=== PATIENT | female | born 1955 | race Caucasian/White ===

== ENCOUNTER → 2016-07-29 | Outpatient (CLI) | payer BC ==
--- NOTE | 2016-07-29 14:47 | MAMMOGRAPHY REPORT ---
BILATERAL DIGITAL SCREENING MAMMOGRAM TOMOSYNTHESIS WITH CAD: 07/29/2016 CLINICAL HISTORY: Routine screening examination. TECHNIQUE: Breast tomosynthesis in addition to standard 2D mammography was performed. Current study was also evaluated with a Computer Aided Detection (CAD) system. COMPARISON: Comparison is made to exams dated: 07/25/2015 mammogram, 07/16/2014 mammogram, 07/13/2013 tonya mogram, 07/12/2012 mammogram, 07/09/2011 mammogram, and 07/03/2010 mammogram - [facility] er. BREAST COMPOSITION: There are scattered areas of fibroglandular density in both breasts. FINDINGS: There are a few benign-appearing round and rim calcifications in the breasts. No suspiciou s mass, architectural distortion or cluster of suspicious microcalcifications is seen. IMPRESSION: ACR BI-RADS CATEGORY 1: NEGATIVE There is no mammographic evidence of malignancy. A 1 year screening mammogram is recommended. The pa tient will receive written notification of the results. Approximately 10% of breast cancers are not detected with mammography. A negative mammographic report should not delay biopsy if a clinically suggestive mass is present. Dayami Ward M.D. ay/:07/29/2016 09:20:18 Driller Hand: Shante SPAULDING(R)(M), [facility] letter sent: Normal 1/2 BI-RADS Code: ACR BI-RADS Category 1: Negative
== END | disposition home or self-care (01) ==
LOC: C.MAMM 08:03
DX: Z12.31 Encounter for screening mammogram for malignant neoplasm of breast (principal)

== ENCOUNTER → 2016-09-08 | Outpatient (CLI) | payer BC ==
--- NOTE | 2016-09-17 10:27 | CODING QUERY NO DIAGNOSIS ---
TREATMENT RENDERED WITHOUT A DIAGNOSIS 56 To promote full compliance with coding requirements relating to patient care, physician participation is requested in all cases of electronic publishing specialist uncertainty. Please assist us with providing a diagnosis/symptom for the test(s) below: A diagnosis/symptom was not documented on your Order. A valid diagnosis/symptom is required to bill all insurances. Please remember that we are unable to code a diagnosis of rule out, probable, possible, questionable, or suspected. DOS 09/08/16 Tests that require a diagnosis: * THIN PREP PAP TEST WITH REFLEX HPV-DNA TYPING DIAGNOSIS: Provider Signature: Date: Thank you Caridad Kaur Health Information Management Once completed, please kindly fax back to [phone] For questions please call [phone]
== END | disposition home or self-care (01) ==
LOC: C.PAPS 14:44
PROVIDERS: ATTEND Nurse Practitioner Family
DX: Z01.419 Encounter for gynecological examination (general) (routine) without abnormal findings (principal)

== ENCOUNTER → 2017-09-15 | Outpatient (CLI) | payer OTHER ==
--- NOTE | 2017-09-15 13:36 | DIAGNOSTIC IMAGING REPORT ---
R EXTREMITY NONVASCULAR LIMITED CLINICAL HISTORY: 62 years-old Female presenting with MASS ON R THIGH. TECHNIQUE: Real-time grayscale ultrasound imaging of the right leg was performed for a focused evaluation at the site of clinical concern. Color Doppler ultrasound imaging was also performed. COMPARISON: None. FINDINGS: At the site of clinical concern in the medial mid right thigh, there is an ill-defined laminar hypoechoic to anechoic fluid collection measuring 2.1 x 0.6 x 2.0 cm. This collection is avascular. There is surrounding hyperechogenic fat. There is no hyperemia in this region. Remaining visualized soft tissues within normal limits. IMPRESSION: 1. Findings suggest small laminar seroma or hematoma at the site of clinical concern. Correlate clinically to exclude infection. Electronically signed by: Kobi Amin M.D. 09/15/2017 1:34 PM Dictated Date/Time: 09/15/2017 1:33 PM
== END | disposition home or self-care (01) ==
LOC: C.ULTR 12:25
DX: R22.41 Localized swelling, mass and lump, right lower limb (principal)

== ENCOUNTER 2020-02-23 12:26 | Observation (INO) ==
[2020-02-23] MEDS ORDERED: ASPIRIN CHEW 324 MG PO STA (12:38)
--- NOTE | 2020-02-23 12:59 | Emergency Department Note ---
Impression & Plan Chest pain, Abnormal ECG, Elevated troponin I level ED Provider Note NAME: MARIO HOBSON AGE: 65 SEX: F : 1955 ARRIVES VIA: Walk-In INFORMANT: Patient, ED PROVIDER(S): Jovani Quarles DO CHIEF COMPLAINT: Chest pain HPI: The patient is a 65-year-old female who presented to the emergency department for an evaluation of chest discomfort. The patient states that she notices substernal and lower sternal chest discomfort. She also notices shortness of breath. She states that the symptoms are sometimes worsened with deep inspiration he is also noticed that she is having exertional dyspnea as well. The patient states that she is an avid walker and has no problem walking around her neighborhood as well as up and down hills in her neighborhood. She states that she has had some problems ever since the beginning of the week. The patient had a very stressful episode with a family member at the beginning of the week and she states that ever since this time she has had difficulty with ambulation and dyspnea on exertion. The patient states that this time her symptoms are moderately improved. She does still have some discomfort but states it is almost completely gone. She does not have a cardiac history. She denies any family history of coronary disease. The patient has not had a stress test or cardiac work-up previously. She did not see her family doctor for the symptoms. She states that she did not take any medication for this discomfort but states it is significantly improved with rest. The patient denies having any lower extremity swelling or calf pain at this time. ROS: See above HPI for pertinent positives & negatives. A total of 10 systems reviewed and were otherwise negative. PAST MEDICAL HISTORY: See Below PAST SURGICAL HISTORY: See Below FAMILY HISTORY: See Below SOCIAL HISTORY: See Below HOME MEDICATIONS: See Below ALLERGIES: See Below VITALS: See Below PHYSICAL EXAMINATION: GENERAL: Patient is awake alert in no acute distress patient is resting com fortably and showing no signs of anxiety EYES: The conjunctivae are clear. The pupils are round and reactive. EARS, NOSE, MOUTH AND THROAT: The nose is without any evidence of any deformity.. NECK: The neck is nontender and supple. RESPIRATORY: Normal respiratory effort is noted there is no evidence of wheezing rhonchi or rales CARDIOVASCULAR: Regular rate and rhythm noted there no murmurs rubs or gallops normal S1 normal S2. GASTROINTESTINAL: The abdomen is soft. Abdomen is nontender. MUSCULOSKELETAL/EXTREMITIES: There is no evidence of gross deformity full range of motion is noted in the hips and shoulders. SKIN: There is no obvious evidence of any rash. There are no petechiae, pallor or cyanosis noted. NEUROLOGIC: Patient is awake alert and oriented x3 strength is symmetric chang lar reflexes are 2+ bilaterally MEDICAL DECISION MAKING: The patient is a 65-year-old female who presented to the emergency department for an evaluation of chest pain. The patient describes anterior chest pain that she describes as a pressure but she also notices significant dyspnea on exertion. The patient does not have a cardiac history. She does not have a strong family history for coronary artery disease. The patient's EKG did show some vague abnormalities including T wave inversions. She is pain-free at this time. She was treated with aspirin in the emergency department. The patient's troponin was found to be borderline elevated. I discussed the patient's laboratory and radiographic studies with her. I also discussed the limitations of the emergency department work-up for chest pain with her. Given her findings I do feel that she is at high risk for acute coronary syndrome. For this reason I discussed her case with the on-call [facility]. They have agreed to evaluate the patient in the emergency department for further management and disposition. Triage Nursing notes reviewed. Prior medical records reviewed Vital Signs: reviewed and remarkable for elevated blood pressure. Differential diagnosis: Cardiac ischemia, aortic dissection, pulmonary embolism, pneumothorax, pneumonia, pericarditis, myocarditis, esophageal rupture, GERD, cholecystitis, pancreatitis, musculoskeletal, as well as other pathologies. ER treatment provided: See below Diagnostics interpreted by me: ECG: EKG was obtained in the emergency department. My interpretation is normal sinus rhythm at 91 bpm. Poor R wave progression with anterior Q waves were noted. Biphasic T waves were noted in the apical and low lateral leads. No previous tracing was available for comparison. Cardiac Monitoring: An order was placed for continuous cardiac monitoring. The monitor shows a rate of 95 bpm with sinus rhythm. Laboratory studies: As stated above and show below. Imaging studies: See below Consultation(s): 1400: I discussed this case with Dr. Ferguson who is on-call for the [facility] group. They will evaluate the patient in the emergency department for further management and disposition. Past Med/Surg History Surgical History H/O oral surgery Social History Smoking Status: Never smoker Hx Alcohol Use: Yes Feels Safe at Home: Yes Allergies Allergies Allergy/AdvReac Type Severity Reaction Status Date / Time Sulfa Drugs Allergy Unknown Unknown Uncoded 02/23/20 13:53 Home Meds Home Medications Medication Instructions Recorded Confirmed omega-3 fatty acids 1,000 mg 1,000 mg PO QDD 01/16/20 02/23/20 capsule sxbntyis-dmv-wluu-FA-lutein 1 tab PO QDD 02/23/20 02/23/20 [Centrum Silver Women] simvastatin 20 mg PO QDD 02/23/20 02/23/20 Results & Data (ED) Vital Signs Vital Signs - 24 hr 02/23/20 12:29 Temperature 36.5 C Temperature Source Skin Pulse Rate 92 H Respiratory Rate 20 Respiratory Effort / Characteristics Non-Labored Spontaneous Respiratory Depth Normal Respiratory Pattern Regular Blood Pressure 143/88 H Blood Pressure Mean 106 Pulse Oximetry 98 Oxygen Delivery Method Room Air Sepsis Recent Fever Within 48 Hours No Sepsis New/Unexplained Change in Mental Status N/A Sepsis Action Taken by Nursing No Action Required Home Medications Current Medication List: was personally reviewed by me Laboratory Data Attestation: I reviewed the patient's lab results. Result diagrams: 02/23/20 12:55 02/23/20 12:55 Lab Results 02/23/20 02/23/20 02/23/20 Range/Units 12:55 12:55 12:55 WBC 5.26 (4.8-10.8) K/uL RBC 4.35 (4.2-5.4) M/uL Hgb 13.9 (12.0-16.0) g/dL Hct 41.0 (37-47) % MCV 94.3 (80-100) fL MCH 32.0 (25-34) pg MCHC 33.9 (32-36) g/dL RDW Std Deviation 43.9 (36.4-46.3) fL RDW Coeff of Susan 12.7 (11.5-14.5) % Plt Count 188 (130-400) K/uL MPV 10.7 H (7.4-10.4) fL Immature Gran % (Auto) 0.0 % Neut % (Auto) 55.8 % Lymph % (Auto) 36.1 % [place] % (Auto) 6.8 % Eos % (Auto) 1.1 % Baso % (Auto) 0.2 % Neut # (Auto) 2.93 (1.4-6.5) K/uL Lymph # (Auto) 1.90 (1.2-3.4) K/uL [place] # (Auto) 0.36 (0.11-0.59) K/uL Eos # (Auto) 0.06 (0-0.5) K/uL Baso # (Auto) 0.01 (0-0.2) K/uL Immature Gran # (Auto) 0.00 (0.00-0.02) K/uL PT 10.6 (9.0-12.0) Seconds INR 1.0 (0.9-1.1) APTT 28.4 (21.0-31.0) Seconds PTT Ratio 1.0 Sodium 140 (136-145) mmol/L Potassium 3.9 (3.5-5.1) mmol/L Chloride 107 (98-107) mmol/L Carbon Dioxide 28 (21-32) mmol/L Anion Gap 5.0 (3-11) BUN 16 (7-18) mg/dl Creatinine 0.80 (0.6-1.2) mg/dl Est Cr Clr Drug Dosing 69.1 ml/min Est GFR ( Amer) 90.3 Est GFR (Non-Af Amer) 77.9 BUN/Creatinine Ratio 20.6 H (10-20) Glucose 109 H (70-99) mg/dl Calcium 9.2 (8.5-10.1) mg/dl Total Bilirubin 0.4 (0.2-1) mg/dl AST 19 (15-37) U/L ALT 28 (12-78) U/L Alkaline Phosphatase 75 (45-117) U/L Troponin I 0.270 H* (0-0.045) ng/ml Total Protein 7.0 (6.4-8.2) gm/dl Albumin 3.4 (3.4-5.0) gm/dl Globulin 3.6 (2.5-4.0) gm/dl Albumin/Globulin Ratio 0.9 (0.9-2) Lipase 125 (73-393) U/L COVID-19 Eval Order SARS-CoV-2, RNA, NAAT (NEGATIVE) 02/23/20 02/23/20 Range/Units 13:00 13:00 WBC (4.8-10.8) K/uL RBC (4.2-5.4) M/uL Hgb (12.0-16.0) g/dL Hct (37-47) % MCV (80-100) fL MCH (25-34) pg MCHC (32-36) g/dL RDW Std Deviation (36.4-46.3) fL RDW Coeff of Susan (11.5-14.5) % Plt Count (130-400) K/uL MPV (7.4-10.4) fL Immature Gran % (Auto) % Neut % (Auto) % Lymph % (Auto) % [place] % (Auto) % Eos % (Auto) % Baso % (Auto) % Neut # (Auto) (1.4-6.5) K/uL Lymph # (Auto) (1.2-3.4) K/uL [place] # (Auto) (0.11-0.59) K/uL Eos # (Auto) (0-0.5) K/uL Baso # (Auto) (0-0.2) K/uL Immature Gran # (Auto) (0.00-0.02) K/uL PT (9.0-12.0) Seconds INR (0.9-1.1) APTT (21.0-31.0) Seconds PTT Ratio Sodium (136-145) mmol/L Potassium (3.5-5.1) mmol/L Chloride (98-107) mmol/L Carbon Dioxide (21-32) mmol/L Anion Gap (3-11) BUN (7-18) mg/dl Creatinine (0.6-1.2) mg/dl Est Cr Clr Drug Dosing ml/min Est GFR ( Amer) Est GFR (Non-Af Amer) BUN/Creatinine Ratio (10-20) Glucose (70-99) mg/dl Calcium (8.5-10.1) mg/dl Total Bilirubin (0.2-1) mg/dl AST (15-37) U/L ALT (12-78) U/L Alkaline Phosphatase (45-117) U/L Troponin I (0-0.045) ng/ml Total Protein (6.4-8.2) gm/dl Albumin (3.4-5.0) gm/dl Globulin (2.5-4.0) gm/dl Albumin/Globulin Ratio (0.9-2) Lipase (73-393) U/L COVID-19 Eval Order Covid19 [facility]Now [facility] SARS-CoV-2, RNA, NAAT NEGATIVE (NEGATIVE) Administered Medications Discontinued Medications Aspirin (Aspirin Chew 324 Mg) 324 mg PO NOW STA Stop: 02/23/20 12:39 Last Admin: 02/23/20 12:58 Dose: 324 mg Documented by: [id number] Imaging Data Radiologist's Impression: Patient: MARIO HOBSON Admit Date: 02/23/20 MR#: [id number] Address1: [address] Acct ID:[id number] Address2: Date: 1955 [facility] Zip: [place] [address] Age: 65 Location: ED Sex: F Room/Bed: Att Phy: Diagnosis: CHEST PAIN,SOB NOW RESOLVED Rose Phy: Keo Shaw Jr, DO Service Date: 02/23/20 [facility] Phy: Interpreting Phy: Lai Anaya MD Admit Phy: Ordering Phy: Jovani Quarles DO cc: ~ XR chest 1V portable CLINICAL HISTORY: Chest Pain COMPARISON STUDY: No previous studies for comparison. FINDINGS: Lung volumes are normal. Lungs are clear. There is no pneumothorax or pleural effusion. Cardiac size is normal. Mediastinal contours are normal. There is no evidence for pulmonary edema. IMPRESSION: No acute cardiopulmonary findings. ACT 112: Negative or not required by law. Electronically signed by: Lai Anaya M.D. 02/23/2020 1:32 PM Dictated: 02/23/20 1331 Transcribed: 02/23/20 1331 Blood Pressure Blood Pressure Findings: Elevated blood pressure Blood Pressure Disposition: further management by hospitalist Discharge Plan Visit Data Chief Complaint: Cardiac Assessment Stated Complaint: CHEST PAIN,SOB NOW RESOLVED ED Provider: Jovani Quarles Discharge Problem: Chest pain, Abnormal ECG, Elevated troponin I level Patient Disposition: Being Evaluated by Hospitalist Condition: Good Forms Stand Alone Forms: My [facility] [employer] Prescriptions Prescriptions: No Action omega-3 fatty acids [Fish Oil Concentrate] 1,000 mg capsule 1,000 mg PO QDD RF: 0 simvastatin 20 mg tablet 20 mg PO QDD RF: 0 Centrum Silver Women 8 mg iron-400 mcg-300 mcg Tablet 1 tab PO QDD RF: 0 Referrals Referrals: Keo Shaw Jr, DO [Primary Care Provider] - Discharge Problem: Chest pain Qualifiers: Chest pain type: unspecified Qualified Code(s): R07.9 - Chest pain, unspecified
[2020-02-23 13:12] LABS: Basophils # (auto) 0.01 K/uL (0-0.2); Basophils % (auto) 0.2 %; Eosinophils # (auto) 0.06 K/uL (0-0.5); Eosinophils % (auto) 1.1 %; Hemoglobin 13.9 g/dL (12.0-16.0); Lymphocytes % (auto) 36.1 %; Mean Corpuscular Hgb Conc 33.9 g/dL (32-36); Mean Corpuscular Volume 94.3 fL (80-100); Mean Platelet Volume 10.7 fL (7.4-10.4); Monocytes # (auto) 0.36 K/uL (0.11-0.59); Monocytes % (auto) 6.8 %; Neutrophils # (auto) 2.93 K/uL (1.4-6.5); Neutrophils % (auto) 55.8 %; Platelet Count 188 K/uL (130-400); RDW Coefficient of Variation 12.7 % (11.5-14.5); RDW Standard Deviation 43.9 fL (36.4-46.3); Red Blood Count 4.35 M/uL (4.2-5.4); White Blood Count 5.26 K/uL (4.8-10.8)
[2020-02-23 13:23] LABS: Partial Thromboplastin Time 28.4 Seconds (21.0-31.0); Prothrombin Time 10.6 Seconds (9.0-12.0)
[2020-02-23 13:29] LABS: Albumin Level 3.4 gm/dl (3.4-5.0); BUN Creatinine Ratio 20.6 (10-20); Calcium 9.2 mg/dl (8.5-10.1); Creatinine Clr Calc Pharmacy 69.1 ml/min; Est GFR (African American) 90.3; Est GFR (Non-African American) 77.9; Potassium 3.9 mmol/L (3.5-5.1)
--- NOTE | 2020-02-23 13:33 | XRay Report ---
XR chest 1V portable CLINICAL HISTORY: Chest Pain COMPARISON STUDY: No previous studies for comparison. FINDINGS: Lung volumes are normal. Lungs are clear. There is no pneumothorax or pleural effusion. Car diac size is normal. Mediastinal contours are normal. There is no evidence for pulmonary edema. IMPRESSION: No acute cardiopulmonary findings. ACT 112: Negative or not required by law. Electronically signed by: Lai Anaya M.D. 02/23/2020 1:32 PM
[2020-02-23 13:37] LABS: Albumin Globulin Ratio 0.9 (0.9-2); Bilirubin,Total 0.4 mg/dl (0.2-1); Globulin 3.6 gm/dl (2.5-4.0); Troponin I 0.27 ng/ml (0-0.045)
[2020-02-23 14:10] LABS: D Dimer 250 ug/L FEU (0-500)
[2020-02-23] MEDS ORDERED: METOPROLOL SUCC 50MG EXT REL TAB PO STA (14:35)
--- NOTE | 2020-02-23 17:03 | History & Physical Report ---
Date of Service February 23, 2020 Assessment & Plan (1) Takotsubo cardiomyopathy: Mrs. Kumar is a generally active and healthy 65-year-old female with a history of Hypercholesterolemia who presents today with what is most likely Takotsubo Syndrome / Takotsubo Cardiomyopathy as evidenced by her symptoms, history, elevated troponin I level, and Echo findings. Patient went through an extremely stressful situation with her younger sister on 02/19/2020 and presents today complaining of decreased exertional tolerance, and exertional dyspnea ever since having an episode of chest discomfort at that time. Patient's mother had a stroke and is now in a assisted which has been quite expensive -- and her younger sister has been living in the mother's home. Patient plans on selling her mother's house to help pay for assisted cost, but her younger sister is opposed to this. Nonetheless, arrangements were made for the patient and her youngest sister to go there and start emptying out some of the furnishings. Needless to say, her younger sister -- who is a hoarder -- barricaded herself inside the house and called the police. When the police were interviewing the patient, she developed a vague discomfort in her anterior chest which lasted for about 30 minutes in total. She did not have any associated nausea, vomiting, diaphoresis, or dyspnea. The discomfort did not radiate anywhere else either. However, since that time, when the patient goes on her daily 4 mile walk -- her exertional tolerance has dropped off significantly, and she experiences exertional dyspnea which limits her. Patient states that she has walked every day for a long time, walking 4 miles a day and this includes hills. She has never experienced anything like this before. -- Admit for further evaluation and treatment. -- Trend troponin I levels. -- Daily EKG and EKG prn for chest pain. -- Heparin drip. -- Aspirin 81 mg daily. -- Cardiology consult. -- Begin Toprol XL 50 mg daily. -- If BP allows -- begin ACEI or ARB. -- Follow up Echocardiogram in the next several weeks to re-evaluate LV systolic function. (2) Chest pain: -- As outlined above. (3) Abnormal ECG: -- As outlined above. (4) Elevated troponin I level: -- As outlined above. (5) Hypercholesterolemia: -- Continue Simvastatin 20 mg daily. (6) DVT prophylaxis: Heparin drip Disposition-bring in on observation to PCU History of Present Illness Chief Complaint: -- Chest Pain. -- Exertional Dyspnea. -- Decreased Exertional Tolerance x 5 days. Primary Care Provider: Keo Shaw Jr, DO Mrs. Kumar is a generally active and healthy 65-year-old female with a history of Hypercholesterolemia who presents today complaining of decreased exertional tolerance, and exertional dyspnea ever since having an episode of chest discomfort on Wednesday02/19/2020. Patient with through an extremely stressful situation with her younger sister on 02/19/2020. Patient's mother had a stroke and is now in a assisted which has been quite expensive -- and her younger sister has been living in the mother's home. Patient plans on selling her mother's house to help pay for assisted cost, but her younger sister is opposed to this. Nonetheless, arrangements were made for the patient and her youngest to go there and start emptying out some of the furnishings. needless to say, her younger sister who is a hoarder -- barricaded herself inside the house and called the police. When the police were interviewing the patient, she developed a vague discomfort in her anterior chest which lasted for about 30 minutes in total. She did not have any associated nausea, vomiting, diaphoresis, or dyspnea. The discomfort did not radiate anywhere else either. However, since that time, when the patient goes on her daily 4 mile walk -- her exertional tolerance has dropped off significantly, and she experiences exertional dyspnea which limits her. Patient states that she has walked every day for a long time, walking 4 miles a day and this includes hills. She has never experienced anything like this before. She is not experiencing any chest discomfort at this point. Patient denies any prior cardiac history or prior cardiac events. She exercises routinely. She is compliant with her medicines and has not had any adverse side effects. Evaluation in the ER shows an elevated troponin I level of 0.270 ng/mL and her EKG shows a NSR with an age-indeterminate septal infarct pattern. No prior tracings for comparison. Allergies Allergy/AdvReac Type Severity Reaction Status Date / Time Sulfa Drugs Allergy Unknown Unknown Uncoded 02/23/20 13:53 Home Medications Medication Instructions Recorded Confirmed Type omega-3 fatty acids 1,000 mg 1,000 mg PO QDD 01/16/20 02/23/20 History capsule [id number]-lutein 1 tab PO QDD 02/23/20 02/23/20 History [Centrum Silver Women] simvastatin 20 mg PO QDD 02/23/20 02/23/20 History Past Med/Surg History Medical History (Updated 02/23/20 @ 22:26 by Brisa Ferguson MD) Hypercholesterolemia Surgical History (Updated 02/23/20 @ 22:29 by Brisa Ferguson MD) H/O oral surgery History of appendectomy Family History (Updated 02/23/20 @ 22:24 by Brisa Ferguson MD) Mother Stroke Social History Smoking Status: Never smoker Hx Alcohol Use: Yes Alcohol type: wine Hx Substance Use: No Preferred Language: Kiswahili Communication Ability: Effective Gaming Director Required: No Beliefs That Will Affect Care: None Current Living Situation: Spouse Other Information That Helps Us Care for You: No Feels Safe at Home: Yes Safety Concerns: Feels Safe At This Time Assistive Devices: Glasses Review of Systems Review of Systems: All systems reviewed & are unremarkable except as noted in Subjective Physical Exam Physical Exam: GENERAL: Patient in no acute distress. HEENT: Head is atraumatic, normocephalic. EOM's intact. Facies symmetric. No perioral cyanosis. NECK: No JVD. JVP is at the level of the clavicle sitting upright. Carotid upstrokes are + 2 bilaterally. No bruits are noted. CHEST/LUNGS: Clear to auscultation throughout all lung floyd. No wheezes, rales, or crackles. CVS: S1 and S2 are regular without murmurs, gallops, or rubs. PMI is nondisplaced. No lifts, heaves, or thrills. No abdominal aortic or renal bruits. ABDOMINAL EXAM: Bowel sounds are present. No masses, organomegaly, or tenderness. EXTREMITIES: No clubbing or cyanosis. No edema. Intact posterior tibial and radial pulses bilaterally. NEUROLOGIC EXAM: Patient is awake, alert, and oriented. Pleasant and cooperative. Answers questions appropriately. Speech is clear. Normal movement in all 4 extremities. EKG 02/23/2020: -- NSR with an age-indeterminate septal infarct pattern. -- No prior tracings for comparison. ECHOCARDIOGRAM 02/23/2020: -- Decreased LV systolic function with global LV hypokinesis but basal segments are spared. -- Fish Farm Manager's interpretation is pending. Results & Data Results & Data ([facility]) Vital Signs (Past 12 Hours) Vital Signs Temp Pulse Pulse Resp BP BP Pulse Ox 02/23/20 16:00 81 16 02/23/20 15:31 75 16 02/23/20 15:30 78 15 108/71 02/23/20 15:22 85 19 02/23/20 15:21 86 18 114/83 02/23/20 15:00 82 12 109/53 L 02/23/20 14:41 92 H 16 02/23/20 14:30 75 17 02/23/20 14:01 79 18 02/23/20 14:00 80 81 15 103/68 106/67 02/23/20 13:54 81 15 106/67 02/23/20 13:30 78 18 02/23/20 13:00 86 18 02/23/20 12:38 93 H 24 02/23/20 12:29 36.5 C 92 H 20 143/88 H 98 Laboratory Results Laboratory Results - last 24 hr 02/23/20 02/23/20 02/23/20 12:38 12:55 12:55 WBC 5.26 RBC 4.35 Hgb 13.9 Hct 41.0 MCV 94.3 MCH 32.0 MCHC 33.9 RDW Std Deviation 43.9 RDW Coeff of Susan 12.7 Plt Count 188 MPV 10.7 H Immature Gran % (Auto) 0.0 Neut % (Auto) 55.8 Lymph % (Auto) 36.1 [place] % (Auto) 6.8 Eos % (Auto) 1.1 Baso % (Auto) 0.2 Neut # (Auto) 2.93 Lymph # (Auto) 1.90 [place] # (Auto) 0.36 Eos # (Auto) 0.06 Baso # (Auto) 0.01 Immature Gran # (Auto) 0.00 PT 10.6 INR 1.0 APTT 28.4 PTT Ratio 1.0 D-Dimer 250 Sodium Potassium Chloride Carbon Dioxide Anion Gap BUN Creatinine Est Cr Clr Drug Dosing Est GFR ( Amer) Est GFR (Non-Af Amer) BUN/Creatinine Ratio Glucose Calcium Total Bilirubin AST ALT Alkaline Phosphatase Troponin I Total Protein Albumin Globulin Albumin/Globulin Ratio Lipase COVID-19 Eval Order SARS-CoV-2, RNA, NAAT 02/23/20 02/23/20 02/23/20 12:55 13:00 13:00 WBC RBC Hgb Hct MCV MCH MCHC RDW Std Deviation RDW Coeff of Susan Plt Count MPV Immature Gran % (Auto) Neut % (Auto) Lymph % (Auto) [place] % (Auto) Eos % (Auto) Baso % (Auto) Neut # (Auto) Lymph # (Auto) [place] # (Auto) Eos # (Auto) Baso # (Auto) Immature Gran # (Auto) PT INR APTT PTT Ratio D-Dimer Sodium 140 Potassium 3.9 Chloride 107 Carbon Dioxide 28 Anion Gap 5.0 BUN 16 Creatinine 0.80 Est Cr Clr Drug Dosing 69.1 Est GFR ( Amer) 90.3 Est GFR (Non-Af Amer) 77.9 BUN/Creatinine Ratio 20.6 H Glucose 109 H Calcium 9.2 Total Bilirubin 0.4 AST 19 ALT 28 Alkaline Phosphatase 75 Troponin I 0.270 H* Total Protein 7.0 Albumin 3.4 Globulin 3.6 Albumin/Globulin Ratio 0.9 Lipase 125 [facility], RNA, NAAT NEGATIVE Diagnostic Findings CXR 02/23/2020: -- No acute processes. Medications Administered Discontinued Medications Aspirin (Aspirin Chew 324 Mg) 324 mg PO NOW STA Stop: 02/23/20 12:39 Last Admin: 02/23/20 12:58 Dose: 324 mg Documented by: [id number] Metoprolol Succinate (Metoprolol Succ 50mg Ext Rel Tab) 50 mg PO NOW STA Stop: 02/23/20 14:36 Last Admin: 02/23/20 15:19 Dose: 50 mg Documented by: [id number] Code Status & VTE Plan VTE Prophylaxis Plan VTE Prophylaxis will be ordered: Yes Supervising Physician Co-Signing Physician Notes PA Supervision Note: I personally saw and examined the patient. I verified all duarte points and agree with BEENA Alcantar with the following exceptions and/or additions: This patient is a 65-year-old female who presents today with 4 to 5 days of mild chest discomfort with exertion as well as dyspnea on exertion that came on after a very stressful family/personal event this past Wednesday. While she is sitting at rest, she has no chest pain or shortness of breath. She denies any abdominal pains or nausea. She denies any lower extremity edema. She has never had any cardiac or pulmonary issues in the past. In the ER, her vitals were normal. A troponin however was elevated at 0.2. Her ECG showed a normal sinus rhythm with rate of 91 and an age undetermined septal infarct. D-dimer was negative. Covid-19 test was negative. History and ROS reviewed as above Vitals reviewed Gen: AAOx3, NAD HEENT: Anicteric sclerae, EOMI CV: RRR no mgr nl S1S2, no JVD Pulm: CTAB no wcr Abd: +BS soft NT ND no masses or hernias Ext: No edema, 2+ DP pulses Skin: No rashes, warm/dry Neuro: Full strength throughout Laboratory values reviewed ECG reviewed Chest x-ray reviewed 65-year-old female here with 4 to 5 days of chest discomfort and dyspnea on exertion following a very stressful event, found to have positive troponin. Echocardiogram performed in the ER and found to have findings consistent with Takotsubo cardiomyopathy but with preserved EF -Admit with plan outlined as above for medical management Appreciate any further recommendations by cardiology. PG Care Time/CCT Total # of Minutes Spent Total Time Spent with Patient: Total time spent is greater than 50% in coordination of care (as documented) at patient's floor/unit and/or counseling patient:35 Coding Level of Care Code 04604 OBS Care - Level 3 Diagnoses Takotsubo cardiomyopathy I51.81 Chest pain R07.9 Chest pain type: unspecified Abnormal ECG R94.31 Elevated troponin I level R77.8 Hypercholesterolemia E78.00 DVT prophylaxis Z29.9 Time Spent (min) 60 (1) Chest pain Chest pain type: unspecified Qualified Code(s): R07.9 - Chest pain, unspecified
--- NOTE | 2020-02-23 17:20 | XCELERA ---
[id number]
[2020-02-23] MEDS ORDERED: ALUMINUM/MAGNESIUM/SIMETH (MAALOX MAX) 30 ML UDC PO PRN (17:23)
[2020-02-23] MEDS ORDERED: NITROGLYCERIN SL 0.4 MG/TAB TAB SL PRN (17:23)
[2020-02-23] MEDS ORDERED: HEPARIN SODIUM/DEXTROSE 25,000 UNITS/500 ML BAG IV SCH (17:23)
[2020-02-23] MEDS ORDERED: MAGNESIUM HYDROXIDE SUSP 30 ML UDC PO PRN (17:23)
[2020-02-23] MEDS ORDERED: ONDANSETRON INJ 2 MG/ML 2 ML VIAL IV PRN (17:23)
[2020-02-23] MEDS ORDERED: ACETAMINOPHEN 325 MG TAB PO PRN (17:23)
[2020-02-23] MEDS ORDERED: ZOLPIDEM TARTRATE 5 MG TAB PO PRN (17:23)
[2020-02-23] MEDS ORDERED: Heparin IV Standard *NO* Bolus IV SCH (18:15)
[2020-02-23] MEDS: SIMVASTATIN 20 MG TAB PO SCH (18:37)
--- NOTE | 2020-02-23 23:19 | Electrocardiogram Report ---
Test Reason : Blood Pressure : / mmHG Vent. Rate : 091 BPM Atrial Rate : 091 BPM P-R Int : 160 ms QRS Dur : 084 ms QT Int : 342 ms P-R-T Axes : 035 -23 056 degrees QTc Int : 420 ms Normal sinus rhythm Septal infarct , age undetermined Abnormal ECG No previous ECGs available Confirmed by Joe Camarena ([id number]) on 02/23/2020 11:18:57 PM Referred By: Confirmed By:Joe Camarena
[2020-02-24 01:25] LABS: Partial Thromboplastin Ratio 2.2
[2020-02-24 01:29] LABS: Partial Thromboplastin Time 62.1 Seconds (21.0-31.0)
[2020-02-24 08:31] LABS: Basophils # (auto) 0.01 K/uL (0-0.2); Basophils % (auto) 0.2 %; Eosinophils # (auto) 0.12 K/uL (0-0.5); Eosinophils % (auto) 2.1 %; Hematocrit (blood only) 40.5 % (37-47); Hemoglobin 13.9 g/dL (12.0-16.0); Immature Granulocytes # (auto) 0.01 K/uL (0.00-0.02); Immature Granulocytes % (auto) 0.2 %; Lymphocytes # (auto) 2.23 K/uL (1.2-3.4); Lymphocytes % (auto) 39.7 %; Mean Corpuscular Hgb Conc 34.3 g/dL (32-36); Mean Corpuscular Volume 93.1 fL (80-100); Mean Platelet Volume 10.7 fL (7.4-10.4); Monocytes # (auto) 0.45 K/uL (0.11-0.59); Neutrophils % (auto) 49.8 %; Platelet Count 198 K/uL (130-400); RDW Coefficient of Variation 12.9 % (11.5-14.5); RDW Standard Deviation 44.2 fL (36.4-46.3); Red Blood Count 4.35 M/uL (4.2-5.4); White Blood Count 5.62 K/uL (4.8-10.8)
[2020-02-24] MEDS ORDERED: ASPIRIN 81 MG ECTAB PO SCH (09:00)
[2020-02-24] MEDS ORDERED: METOPROLOL SUCC 50MG EXT REL TAB PO SCH (09:00)
[2020-02-24 09:06] LABS: Partial Thromboplastin Ratio 4.1
[2020-02-24 09:09] LABS: BUN Creatinine Ratio 18.4 (10-20); Calcium 9.2 mg/dl (8.5-10.1); Est GFR (African American) 83.9; Est GFR (Non-African American) 72.4; Potassium 3.9 mmol/L (3.5-5.1)
[2020-02-24 09:30] LABS: Partial Thromboplastin Time 113.3 Seconds (21.0-31.0)
[2020-02-24] MEDS ORDERED: HEPARIN (PORCINE) 1000 UNIT/ML 10 ML (CATH LAB USE ONLY) ONE (11:29)
[2020-02-24] MEDS ORDERED: MIDAZOLAM HCL 1 MG/ML 2ML VIAL ONE (11:29)
[2020-02-24] MEDS ORDERED: fentaNYL citrate 100 MCG/2 ML VIAL ONE (11:29)
[2020-02-24] MEDS ORDERED: niCARdipine HCL INJ 2.5 MG/ML 10 ML AMP ONE (11:29)
[2020-02-24] MEDS ORDERED: NITROGLYCERIN/D5W 100MCG/ML 20ML SYR ONE (11:30)
--- NOTE | 2020-02-24 11:57 | Cardiology Consultation ---
Date of Consultation February 24, 2020 Assessment & Plan (1) Angina pectoris: (2) Takotsubo cardiomyopathy: (3) Elevated troponin I level: (4) Dyspnea on exertion: (5) Hypercholesterolemia: ASSESSMENT/PLAN: 1. Angina: Symptoms concerning for angina. Given her very stressful situation, Takotsubo is a very likely explanation. Given history of dyslipidemia and the fact that Takotsubo is a diagnosis made after ischemic heart disease is ruled out, cardiac catheterization is recommended. Risks and benefits of the procedure were discussed with her in detail. She was made aware that CT surgery is not available at this facility. She is agreeable to undergo the procedure and has been NPO. Continue heparin drip. Continue aspirin. Continue beta- kenneth as tolerated. 2. Takotsubo cardiomyopathy: This appears to be a likely etiology for her symptoms. Cardiac catheterization as above to exclude ischemic heart disease as the cause. We discussed this diagnosis as she was already aware of this possibility. Recommend metoprolol succinate. She did not received today's dose due to hypotension. Will reduce to 25 mg daily. If blood pressure allows, would also recommend low-dose lisinopril. If no significant LAD disease is noted, would expect wall motion abnormalities to improve over the next few weeks. She appears euvolemic. 3. Elevated troponin: Plan as above. 4. Dyspnea with exertion: She appears euvolemic. Most likely etiologies discussed as above. 5. Dyslipidemia: Continue statin therapy. If she is found to have CAD, would recommend high-intensity statin therapy in place of simvastatin. 6. Disposition: Cardiology will continue to follow. As per patient request, her was contacted via telephone to update him with plan as noted. Highly complex medical issues. Thank you for allowing me to participate in the care of your patient. Please c all for any other questions or concerns. Sincerely, Jasbir Chino M.D. History of Present Illness Reason for Consultation: "Takotsubo CM" Requesting Physician: Katharine Attending Physician: Mateo Horvath DO History of Present Illness Mrs. Kumar is a very pleasant 61 for old female with a history significant for dyslipidemia. She was admitted on 02/23/2020 with elevated troponin, dyspnea with exertion, and intermittent anginal symptoms. On 02/19/2020, she had a very stressful situation with her youngest sister, Sienna. Sienna lives with their mother who was recently placed in a half-way due to stroke. The youngest sister who lives in [place], came to the house to take the belongings that were left to her and Sienna reportedly called the police and barricaded herself in the home. While the police were there, Mrs. Kumar, developed a substernal chest discomfort described as an ache which was accompanied by shortness of breath. She sat down and her symptoms improved. A little later, she help pack some of the belongings into boxes with her youngest sister and she did this without symptoms. She typically walks 4 miles a day including hills and does so without exertional symptoms, but later that day she went for a walk with her youngest sister and had dyspnea with exertion while climbing a hill. She believed it to be anxiety related to the earlier incident. The following day, she went for another walk, once again experiencing dyspnea while climbing a hill. The following day she help move furniture and had no symptoms. The next day, she had occasional mild substernal chest ache without specific trigger that would intermittently occur throughout the day. Yesterday, the day of admission, she called her PCP who directed her to the emergency department. While here, she was noted to have an elevated troponin of 0.27 which trended downward to 0.239. She underwent an echo with apical wall motion abnormalities and there was concern for takotsubo cardiomyopathy. She was placed on a heparin drip by the admitting service and has not had any further symptoms. She denies orthopnea, syncope, near-syncope, palpitations, edema, or bleeding such as melena, hematochezia, or hematuria. Review of systems: As above. Review of systems otherwise negative/unremarkable. Family history: Mother and maternal grandmother with stroke. No known premature CAD. Social history: Denies tobacco or drug abuse. Occasional alcohol. Lives at home with her . They have a son and a daughter. 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 She is unaccompanied. Allergies Allergy/AdvReac Type Severity Reaction Status Date / Time Sulfa Drugs Allergy Unknown Unknown Uncoded 02/23/20 13:53 Home Medications Medication Instructions Recorded Confirmed Type omega-3 fatty acids 1,000 mg 1,000 mg PO QDD 01/16/20 02/23/20 History capsule [id number]-[id number]-[id number]-lutein 1 tab PO QDD 02/23/20 02/23/20 History [Centrum Silver Women] simvastatin 20 mg PO QDD 02/23/20 02/23/20 History Patient History Medical History (Updated 02/24/20 @ 11:51 by Héctor Chino MD) Hypercholesterolemia Surgical History (Updated 02/23/20 @ 22:29 by Brisa Ferguson MD) H/O oral surgery History of appendectomy Family History (Updated 02/23/20 @ 22:24 by Brisa Ferguson MD) Mother Stroke Social History Smoking Status: Never smoker Hx Alcohol Use: Yes Alcohol type: wine Hx Substance Use: No Preferred Language: Swiss Communication Ability: Effective Digital Photographic Printer Required: No Beliefs That Will Affect Care: None Current Living Situation: Spouse Other Information That Helps Us Care for You: No Feels Safe at Home: Yes Safety Concerns: Feels Safe At This Time Assistive Devices: Glasses Physical Exam Physical Exam: Gen.: No acute distress. Alert and oriented. HEENT: Anicteric sclera. Neck: No JVD. No bruits. Normal carotid upstrokes bilaterally. Cardiac: PMI was nondisplaced. No ventricular heave. Regular rate and rhythm. Normal S1-S2. No murmurs, rubs, or gallops. Pulmonary: Clear to auscultation bilaterally without wheezes, rales, or rhonchi. Abdomen: Soft, nontender, nondistended, with normoactive bowel sounds. No bruits noted. Extremities: 2+ radial pulses bilaterally. 2+ posterior tibialis pulses bilaterally. No edema or cyanosis. No palpable cords. Psychiatric: Affect appears appropriate. Chest: Nontender to palpation. Results & Data ([facility]) Vital Signs (Past 12 Hours) Vital Signs Temp Pulse Pulse Resp BP Pulse Ox 02/24/20 08:56 65 02/24/20 08:23 36.7 C 67 16 91/58 L 98 02/24/20 03:44 36.7 C 63 17 91/60 L 97 02/24/20 00:43 67 02/23/20 23:46 37.1 C 81 17 98/60 L 97 Laboratory Results Laboratory Results - last 24 hr 02/23/20 02/23/20 02/23/20 12:38 12:55 12:55 WBC 5.26 RBC 4.35 Hgb 13.9 Hct 41.0 MCV 94.3 MCH 32.0 MCHC 33.9 RDW Std Deviation 43.9 RDW Coeff of Susan 12.7 Plt Count 188 MPV 10.7 H Immature Gran % (Auto) 0.0 Neut % (Auto) 55.8 Lymph % (Auto) 36.1 [place] % (Auto) 6.8 Eos % (Auto) 1.1 Baso % (Auto) 0.2 Neut # (Auto) 2.93 Lymph # (Auto) 1.90 [place] # (Auto) 0.36 Eos # (Auto) 0.06 Baso # (Auto) 0.01 Immature Gran # (Auto) 0.00 PT 10.6 INR 1.0 APTT 28.4 PTT Ratio 1.0 D-Dimer 250 Sodium Potassium Chloride Carbon Dioxide Anion Gap BUN Creatinine Est Cr Clr Drug Dosing Est GFR ( Amer) Est GFR (Non-Af Amer) BUN/Creatinine Ratio Glucose Calcium Total Bilirubin AST ALT Alkaline Phosphatase Troponin I Total Protein Albumin Globulin Albumin/Globulin Ratio Lipase COVID-19 Eval Order Hepatitis C Ab Screen SARS-CoV-2, RNA, NAAT 02/23/20 02/23/20 02/23/20 12:55 13:00 13:00 WBC RBC Hgb Hct MCV MCH MCHC RDW Std Deviation RDW Coeff of Susan Plt Count MPV Immature Gran % (Auto) Neut % (Auto) Lymph % (Auto) [place] % (Auto) Eos % (Auto) Baso % (Auto) Neut # (Auto) Lymph # (Auto) [place] # (Auto) Eos # (Auto) Baso # (Auto) Immature Gran # (Auto) PT INR APTT PTT Ratio D-Dimer Sodium 140 Potassium 3.9 Chloride 107 Carbon Dioxide 28 Anion Gap 5.0 BUN 16 Creatinine 0.80 Est Cr Clr Drug Dosing 69.1 Est GFR ( Amer) 90.3 Est GFR (Non-Af Amer) 77.9 BUN/Creatinine Ratio 20.6 H Glucose 109 H Calcium 9.2 Total Bilirubin 0.4 AST 19 ALT 28 Alkaline Phosphatase 75 Troponin I 0.270 H* Total Protein 7.0 Albumin 3.4 Globulin 3.6 Albumin/Globulin Ratio 0.9 Lipase 125 COVID-19 Eval [email or web address] Hepatitis C Ab Screen SARS-CoV-2, RNA, NAAT NEGATIVE 02/23/20 02/24/20 02/24/20 17:35 00:20 08:11 WBC RBC Hgb Hct MCV MCH MCHC RDW Std Deviation RDW Coeff of Susan Plt Count MPV Immature Gran % (Auto) Neut % (Auto) Lymph % (Auto) [place] % (Auto) Eos % (Auto) Baso % (Auto) Neut # (Auto) Lymph # (Auto) [place] # (Auto) Eos # (Auto) Baso # (Auto) Immature Gran # (Auto) PT INR APTT 62.1 H* PTT Ratio 2.2 D-Dimer Sodium Potassium Chloride Carbon Dioxide Anion Gap BUN Creatinine Est Cr Clr Drug Dosing Est GFR ( Amer) Est GFR (Non-Af Amer) BUN/Creatinine Ratio Glucose Calcium Total Bilirubin AST ALT Alkaline Phosphatase Troponin I 0.239 H* Total Protein Albumin Globulin Albumin/Globulin Ratio Lipase COVID-19 Eval Order Hepatitis C Ab Screen Neg SARS-CoV-2, RNA, NAAT 02/24/20 02/24/20 02/24/20 08:11 08:11 08:11 WBC 5.62 RBC 4.35 Hgb 13.9 Hct 40.5 MCV 93.1 MCH 32.0 MCHC 34.3 RDW Std Deviation 44.2 RDW Coeff of Susan 12.9 Plt Count 198 MPV 10.7 H Immature Gran % (Auto) 0.2 Neut % (Auto) 49.8 Lymph % (Auto) 39.7 [place] % (Auto) 8.0 Eos % (Auto) 2.1 Baso % (Auto) 0.2 Neut # (Auto) 2.80 Lymph # (Auto) 2.23 [place] # (Auto) 0.45 Eos # (Auto) 0.12 Baso # (Auto) 0.01 Immature Gran # (Auto) 0.01 PT INR APTT 113.3 H* PTT Ratio 4.1 D-Dimer Sodium 139 Potassium 3.9 Chloride 107 Carbon Dioxide 27 Anion Gap 5.0 BUN 16 Creatinine 0.85 Est Cr Clr Drug Dosing 65.0 Est GFR ( Amer) 83.9 Est GFR (Non-Af Amer) 72.4 BUN/Creatinine Ratio 18.4 Glucose 97 Calcium 9.2 Total Bilirubin AST ALT Alkaline Phosphatase Troponin I Total Protein Albumin Globulin Albumin/Globulin Ratio Lipase COVID-19 Eval Order Hepatitis C Ab Screen SARS-CoV-2, RNA, NAAT Diagnostic Findings ECG personally reviewed: ECG 02/23/2020: Sinus rhythm 91 beats per minute. Possible septal infarct. Telemetry personally reviewed: Sinus rhythm. No arrhythmia. Echo report reviewed 02/23/2020: Normal LV systolic function. EF 50-55%. Akinesis to dyskinesis of the apex. Basal segments appear hyperdynamic. Systolic anterior motion of chordal apparatus. Mild MR. Normal RVSP. Chest x-ray 02/23/2020: No acute findings per Radiology. Chart reviewed. Medications Administered Current Inpatient Medications Acetaminophen (Acetaminophen 325 Mg Tab) 650 mg PO Q6H PRN PRN Reason: Pain or Fever Stop: 03/24/20 17:22 Al Hydrox/Mg Hydrox/Simethicone (Aluminum/Magnesium/Simeth (Maalox Max) 30 Ml Udc) 30 ml PO Q6H PRN PRN Reason: Heartburn Stop: 03/24/20 17:22 Aspirin (Aspirin 81 Mg Ectab) 81 mg PO DAILY [facility] Stop: 03/25/20 08:59 Last Admin: 02/24/20 08:13 Dose: 81 mg Documented by: Fish Oil ([place]-3 (Purified Fish Oil) 1 Gm Cap) 1 gm PO QDD [facility] Stop: 03/25/20 16:29 Heparin Sodium/Dextrose (Heparin Sodium/Dextrose) 25,000 units in 500 mls @ 20 mls/hr IV .Q24H MARY; Protocol Stop: 03/24/20 17:22 Last Titration: 02/24/20 10:41 Dose: 1,000 units/hr, 20 mls/hr Documented by: Magnesium Hydroxide (Magnesium Hydroxide Susp 30 Ml Udc) 30 ml PO Q6H PRN PRN Reason: Constipation Stop: 03/24/20 17:22 Metoprolol Succinate (Metoprolol Succ 50mg Ext Rel Tab) 50 mg PO QAM [facility] Stop: 03/25/20 08:59 Last Admin: 02/24/20 10:26 Dose: Not Given Documented by: Multivitamins/Minerals (Cerovite Adv Formula Tab) 1 tab PO QDD [facility] Stop: 03/25/20 16:29 Nitroglycerin (Nitroglycerin Sl 0.4 Mg/Tab Tab) 0.4 mg SL PRN PRN PRN Reason: Chest Pain Stop: 03/24/20 17:22 Ondansetron HCl (Ondansetron Inj 2 Mg/Ml 2 Ml Vial) 4 mg IV Q8 PRN PRN Reason: Nausea Stop: 03/24/20 17:22 Simvastatin (Simvastatin 20 Mg Tab) 20 mg PO QDD MARY Stop: 03/24/20 17:22 Last Admin: 02/23/20 18:37 Dose: 20 mg Documented by: Zolpidem Tartrate (Zolpidem Tartrate 5 Mg Tab) 5 mg PO HS PRN PRN Reason: Sleep Stop: 03/24/20 17:22 PG Care Time/CCT Total # of Minutes Spent Total Time Spent with Patient: Total time spent is greater than 50% in coordination of care (as documented) at patient's floor/unit and/or counseling patient: Coding Level of Care Code 63084 Office/OBS Consult Lvl 5 Diagnoses Angina pectoris I20.9 Takotsubo cardiomyopathy I51.81 Elevated troponin I level R77.8 Dyspnea on exertion R06.00 Hypercholesterolemia E78.00
--- NOTE | 2020-02-24 12:27 | Pre Anesthesia Assessment ---
Date of Service February 24, 2020 Pre Sedation Assessment Vital Signs Temp Pulse Pulse Resp BP BP BP 02/24/20 12:00 36.8 C 65 18 93/61 L 02/24/20 08:56 65 02/24/20 08:23 36.7 C 67 16 91/58 L 02/24/20 03:44 36.7 C 63 17 91/60 L 02/24/20 00:43 67 02/23/20 23:46 37.1 C 81 17 98/60 L 02/23/20 19:08 37.1 C 80 18 92/60 L 02/23/20 17:53 71 02/23/20 17:09 37.2 C 70 16 103/69 02/23/20 16:31 77 17 02/23/20 16:30 67 19 103/65 02/23/20 16:14 104/75 02/23/20 16:00 81 16 02/23/20 15:31 75 16 02/23/20 15:30 78 15 108/71 02/23/20 15:22 85 19 02/23/20 15:21 86 18 114/83 02/23/20 15:00 82 12 109/53 L 02/23/20 14:41 92 H 16 02/23/20 14:30 75 17 02/23/20 14:01 79 18 02/23/20 14:00 80 81 15 103/68 106/67 02/23/20 13:54 81 15 106/67 02/23/20 13:30 78 18 02/23/20 13:00 86 18 02/23/20 12:38 93 H 24 02/23/20 12:29 36.5 C 92 H 20 143/88 H Pulse Ox 02/24/20 12:00 96 02/24/20 08:56 02/24/20 08:23 98 02/24/20 03:44 97 02/24/20 00:43 02/23/20 23:46 97 02/23/20 19:08 97 02/23/20 17:53 02/23/20 17:09 99 02/23/20 16:31 02/23/20 16:30 02/23/20 16:14 02/23/20 16:00 02/23/20 15:31 02/23/20 15:30 02/23/20 15:22 02/23/20 15:21 02/23/20 15:00 02/23/20 14:41 02/23/20 14:30 02/23/20 14:01 02/23/20 14:00 02/23/20 13:54 02/23/20 13:30 02/23/20 13:00 02/23/20 12:38 02/23/20 12:29 98 Cardiovascular RRR, no murmur, no edema Respiratory normal respiratory effort, lungs clear to auscultation Pre-Sedation Airway Assessment Smoking Status: Never smoker Mallampati Class: III ASA: ASA3 NPO Status Date of Last Intake of Fluids: 02/23/20 Time of Last Intake of Fluids: 18:00 Date of Last Intake of Solid Food: 02/23/20 Time of Last Intake of Solid Foods: 18:00 Procedure Planning Contraindications for Sedation: none Current Medications Reviewed: Yes Notes The planned sedation has been discussed with the patient. Informed Consent was obtained. I have identified the patient, determined the appropriateness of sedation and have assessed the patient immediately prior to the procedure. All medicine(s) and interventions are by my order.
--- NOTE | 2020-02-24 12:52 | Hospitalist Progress Note ---
Date of Service February 24, 2020 Assessment & Plan (1) Takotsubo cardiomyopathy: Mrs. Kumar is a generally active and healthy 65-year-old female with a history of Hypercholesterolemia who presents today with what is most likely Takotsubo Syndrome / Takotsubo Cardiomyopathy as evidenced by her symptoms, history, elevated troponin I level, and Echo findings. Patient went through an extremely stressful situation with her younger sister on 02/19/2020 and presents today complaining of decreased exertional tolerance, and exertional dyspnea ever since having an episode of chest discomfort at that time. Patient's mother had a stroke and is now in a [place] [facility] [place] which has been quite expensive -- and her younger sister has been living in the mother's home. Patient plans on selling her mother's house to help pay for [place] [facility] [place] cost, but her younger sister is opposed to this. Nonetheless, arrangements were made for the patient and her youngest sister to go there and start emptying out some of the furnishings. Needless to say, her younger sister -- who is a hoarder -- barricaded herself inside the house and called the police. When the police were interviewing the patient, she developed a vague discomfort in her anterior chest which lasted for about 30 minutes in total. She did not have any associated nausea, vomiting, diaphoresis, or dyspnea. The discomfort did not radiate anywhere else either. However, since that time, when the patient goes on her daily 4 mile walk -- her exertional tolerance has dropped off significantly, and she experiences exertional dyspnea which limits her. Patient states that she has walked every day for a long time, walking 4 miles a day and this includes hills. She has never experienced anything like this before. Pt went to cardiac Cath to day see report. On discussion with Cardiology, patient with no significant disease. Recommend f/u with cardiology Discharge on Aspirin 81 mg daily Metoprolol 25 mg daily Change to Lipitor 40 mg daily. Scheduled follow up with Cardiology and future Cardiac ECHO (2) Elevated troponin I level: see above (3) Dyspnea on exertion: see above. Activity as tolerated along with close follow up on resolution of her symptoms and improvement in cardiac function. (4) Hypercholesterolemia: Plan on Change to Lipitor 40 mg daily, high dose treatment for future prevention (5) DVT prophylaxis: no change Admission and Anticipated Discharge Date Admission Date: February 23, 2020 Anticipated date of discharge: 02/24/20 Subjective Pt is doing quite well and eager to get moving. No difficulty over night. NPO this am as she is scheduled for cardiac Cath possibly today. Review of Systems Review of Systems: All systems reviewed & are unremarkable except as noted in HPI & below No f/c No chest pain, palpitations, cough or change in dyspnea. no abd pain, n/v Physical Exam Physical Exam: Constitutional: WD/WN, Respiratory: Effort normal, CTA B/L CV: RRR, no murmur, no edema Abdomen: normal bowel sounds, soft, nontender, no hepatosplenomegaly Results & Data Results & Data ([facility]) Vital Signs (Past 12 Hours) Vital Signs Temp Pulse Pulse Resp BP Pulse Ox 02/24/20 08:56 65 02/24/20 08:23 36.7 C 67 16 91/58 L 98 02/24/20 03:44 36.7 C 63 17 91/60 L 97 02/24/20 00:43 67 02/23/20 23:46 37.1 C 81 17 98/60 L 97 Laboratory Results Laboratory Results - last 24 hr 02/23/20 02/23/20 02/23/20 12:38 12:55 12:55 WBC 5.26 RBC 4.35 Hgb 13.9 Hct 41.0 MCV 94.3 MCH 32.0 MCHC 33.9 RDW Std Deviation 43.9 RDW Coeff of Susan 12.7 Plt Count 188 MPV 10.7 H Immature Gran % (Auto) 0.0 Neut % (Auto) 55.8 Lymph % (Auto) 36.1 [place] % (Auto) 6.8 Eos % (Auto) 1.1 Baso % (Auto) 0.2 Neut # (Auto) 2.93 Lymph # (Auto) 1.90 [place] # (Auto) 0.36 Eos # (Auto) 0.06 Baso # (Auto) 0.01 Immature Gran # (Auto) 0.00 PT 10.6 INR 1.0 APTT 28.4 PTT Ratio 1.0 D-Dimer 250 Sodium Potassium Chloride Carbon Dioxide Anion Gap BUN Creatinine Est Cr Clr Drug Dosing Est GFR ( Amer) Est GFR (Non-Af Amer) BUN/Creatinine Ratio Glucose Calcium Total Bilirubin AST ALT Alkaline Phosphatase Troponin I Total Protein Albumin Globulin Albumin/Globulin Ratio Lipase COVID-19 Eval Order Hepatitis C Ab Screen SARS-CoV-2, RNA, NAAT 02/23/20 02/23/20 02/23/20 12:55 13:00 13:00 WBC RBC Hgb Hct MCV MCH MCHC RDW Std Deviation RDW Coeff of Susan Plt Count MPV Immature Gran % (Auto) Neut % (Auto) Lymph % (Auto) [place] % (Auto) Eos % (Auto) Baso % (Auto) Neut # (Auto) Lymph # (Auto) [place] # (Auto) Eos # (Auto) Baso # (Auto) Immature Gran # (Auto) PT INR APTT PTT Ratio D-Dimer Sodium 140 Potassium 3.9 Chloride 107 Carbon Dioxide 28 Anion Gap 5.0 BUN 16 Creatinine 0.80 Est Cr Clr Drug Dosing 69.1 Est GFR ( Amer) 90.3 Est GFR (Non-Af Amer) 77.9 BUN/Creatinine Ratio 20.6 H Glucose 109 H Calcium 9.2 Total Bilirubin 0.4 AST 19 ALT 28 Alkaline Phosphatase 75 Troponin I 0.270 H* Total Protein 7.0 Albumin 3.4 Globulin 3.6 Albumin/Globulin Ratio 0.9 Lipase 125 COVID-19 Eval [facility] Hepatitis C Ab Screen SARS-CoV-2, RNA, NAAT NEGATIVE 02/23/20 02/24/20 02/24/20 17:35 00:20 08:11 WBC RBC Hgb Hct MCV MCH MCHC RDW Std Deviation RDW Coeff of Susan Plt Count MPV Immature Gran % (Auto) Neut % (Auto) Lymph % (Auto) [place] % (Auto) Eos % (Auto) Baso % (Auto) Neut # (Auto) Lymph # (Auto) [place] # (Auto) Eos # (Auto) Baso # (Auto) Immature Gran # (Auto) PT INR APTT 62.1 H* PTT Ratio 2.2 D-Dimer Sodium Potassium Chloride Carbon Dioxide Anion Gap BUN Creatinine Est Cr Clr Drug Dosing Est GFR ( Amer) Est GFR (Non-Af Amer) BUN/Creatinine Ratio Glucose Calcium Total Bilirubin AST ALT Alkaline Phosphatase Troponin I 0.239 H* Total Protein Albumin Globulin Albumin/Globulin Ratio Lipase COVID-19 Eval Order Hepatitis C Ab Screen Neg SARS-CoV-2, RNA, NAAT 02/24/20 02/24/20 02/24/20 08:11 08:11 08:11 WBC 5.62 RBC 4.35 Hgb 13.9 Hct 40.5 MCV 93.1 MCH 32.0 MCHC 34.3 RDW Std Deviation 44.2 RDW Coeff of Susan 12.9 Plt Count 198 MPV 10.7 H Immature Gran % (Auto) 0.2 Neut % (Auto) 49.8 Lymph % (Auto) 39.7 [place] % (Auto) 8.0 Eos % (Auto) 2.1 Baso % (Auto) 0.2 Neut # (Auto) 2.80 Lymph # (Auto) 2.23 [place] # (Auto) 0.45 Eos # (Auto) 0.12 Baso # (Auto) 0.01 Immature Gran # (Auto) 0.01 PT INR APTT 113.3 H* PTT Ratio 4.1 D-Dimer Sodium 139 Potassium 3.9 Chloride 107 Carbon Dioxide 27 Anion Gap 5.0 BUN 16 Creatinine 0.85 Est Cr Clr Drug Dosing 65.0 Est GFR ( Amer) 83.9 Est GFR (Non-Af Amer) 72.4 BUN/Creatinine Ratio 18.4 Glucose 97 Calcium 9.2 Total Bilirubin AST ALT Alkaline Phosphatase Troponin I Total Protein Albumin Globulin Albumin/Globulin Ratio Lipase COVID-19 Eval Order Hepatitis C Ab Screen SARS-CoV-2, RNA, NAAT Medications Administered Current Inpatient Medications Acetaminophen (Acetaminophen 325 Mg Tab) 650 mg PO Q6H PRN PRN Reason: Pain or Fever Stop: 03/24/20 17:22 Al Hydrox/Mg Hydrox/Simethicone (Aluminum/Magnesium/Simeth (Maalox Max) 30 Ml Udc) 30 ml PO Q6H PRN PRN Reason: Heartburn Stop: 03/24/20 17:22 Aspirin (Aspirin 81 Mg Ectab) 81 mg PO DAILY [facility] Stop: 03/25/20 08:59 Last Admin: 02/24/20 08:13 Dose: 81 mg Documented by: Fish Oil ([place]-3 (Purified Fish Oil) 1 Gm Cap) 1 gm PO QDD [facility]ARY Stop: 03/25/20 16:29 Heparin Sodium/Dextrose (Heparin Sodium/Dextrose) 25,000 units in 500 mls @ 20 mls/hr IV .Q24H MARY; Protocol Stop: 03/24/20 17:22 Last Titration: 02/24/20 10:41 Dose: 1,000 units/hr, 20 mls/hr Documented by: Magnesium Hydroxide (Magnesium Hydroxide Susp 30 Ml Udc) 30 ml PO Q6H PRN PRN Reason: Constipation Stop: 03/24/20 17:22 Metoprolol Succinate (Metoprolol Succ 25mg Ext Rel Tab) 25 mg PO QAM [facility] Stop: 03/26/20 08:59 Multivitamins/Minerals (Cerovite Adv Formula Tab) 1 tab PO QDD [facility] Stop: 03/25/20 16:29 Nitroglycerin (Nitroglycerin Sl 0.4 Mg/Tab Tab) 0.4 mg SL PRN PRN PRN Reason: Chest Pain Stop: 03/24/20 17:22 Ondansetron HCl (Ondansetron Inj 2 Mg/Ml 2 Ml Vial) 4 mg IV Q8 PRN PRN Reason: Nausea Stop: 03/24/20 17:22 Simvastatin (Simvastatin 20 Mg Tab) 20 mg PO QDD [facility] Stop: 03/24/20 17:22 Last Admin: 02/23/20 18:37 Dose: 20 mg Documented by: Zolpidem Tartrate (Zolpidem Tartrate 5 Mg Tab) 5 mg PO HS PRN PRN Reason: Sleep Stop: 03/24/20 17:22 PG Care Time/CCT Total # of Minutes Spent Total Time Spent with Patient: Total time spent is greater than 50% in coordination of care (as documented) at patient's floor/unit and/or counseling patient: Coding Level of Care Code 94933 Subseq Hosp Care Lvl 2 Diagnoses Takotsubo cardiomyopathy I51.81 Elevated troponin I level R77.8 Dyspnea on exertion R06.00 Hypercholesterolemia E78.00 DVT prophylaxis Z29.9
--- NOTE | 2020-02-24 13:01 | Cardiac Catheterization ---
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 Cardiac Status Clinical evaluation leading to the procedure CAD Presenation: Unstable angina Anginal Classification: CCS IV Heart Failure: No Cardiogenic Shock within 24 Hours: No Cardiac Arrest within 24 Hours: No Imaging Studies Past 6 Months: Yes Stress Studies Past 6 Months: No Standard Exercise Test: No Stress Echocardiogram: No Stress Testing w/SPECT MPI: No Cardiac CTA: No Coronary Anatomy Dominant: Right Left Ventricular Angiography EF (%): n/a Diagnostic Physicians Name: Héctor Chino MD Status: Elective Closure Device Percutaneous Entry Location: Radial Closure Device: Radial Band Recommendations: Management Recommendatons (as above) Cardiac Cath Procedure Full Procedure Date February 24, 2020 Pre-Procedure Diagnosis Pre-Procedure Diagnosis: Angina and Cardiomyopathy AUC Score AUC Score: 8 Post-Procedure Diagnosis Post-Procedure Diagnosis: Mild CAD and Normal Intracardiac Pressures Procedure(s) Performed Procedure(s) Performed: Coronary Angiography and Left Heart Cath Human Resource Analyst Héctor Chino MD [facility] Assistant Navigator(s) Asha Estimated Blood Loss Estimated Blood Loss: < 20 ml Medication(s) Medication(s): Fentanyl, Heparin, Lidocaine 1%, Nicardipine and Versed Summary of Findings Procedures: 1. Coronary angiography 2. Left heart catheterization 3. Moderate sedation Coronary angiography: 1. Left main coronary artery: No significant CAD. 2. Left anterior descending colon the LAD is a large-caliber vessel that wraps around the apex. Smooth narrowing involving the ostial LAD of 10 to 20%. Mid LAD luminal irregularities. Small diagonal vessel. 3. Circumflex: The circumflex is a large-caliber vessel. Circumflex and OM1 without significant CAD. 4. Right coronary artery: RCA is a large and dominant vessel. Proximal RCA luminal irregularities. Mid RCA 20 to 30%. PDA and PL branch without significant CAD. Left heart catheterization: 1. Left ventriculography was not performed. 2. No aortic stenosis. 3. Normal LVEDP; 7 mmHg. Moderate sedation: 1. Sedation start time: 12:34 PM 2. Sedation end time: 12:50 PM Impression: 1. Nonobstructive CAD. 2. Normal left-sided filling pressure. 3. No aortic stenosis. 4. History and findings consistent with Takotsubo cardiomyopathy. Plan: 1. Risk factor modification (continue aspirin 81 mg daily, replace simvastatin with atorvastatin 40 mg daily). 2. Continue metoprolol succinate 25 mg daily. Initiate low-dose lisinopril if blood pressure allows as inpatient or as outpatient. 3. Follow-up with cardiology in 1 to 2 weeks. Outpatient echocardiogram will be arranged. 4. Findings and plan discussed with Dr. Horvath of the primary hospitalist service. Hemodynamics Rest Ao:: 96/52 Final Ao: 102/49 LV: 92/2/7 Recommendations Recommendations: Management Recommendatons (as above) Specimens Specimens: None Radiation Exposure (mGy) 338 mGy. Fluoro time 3 min. Contrast (mls) 20 ml Procedural Complication(s) None Disposition PCU I attest to the content of the Intraoperative Record and any orders documented therein. Any exceptions are noted below. [facility] Card Cath Procedure Codes Cardiac Catheterization Procedure 1: Cardiovascular Cath Procedures: 35508 Coronaries and LHC (+/-LV) Moderate Sedation Procedure 1: Sedation/Anesthesia: 55473 Mod Sedation by the same physician;Init15 Min Child Age 5 & Up PG Care Time/CCT Total # of Minutes Spent Total Time Spent with Patient: Total time spent is greater than 50% in coordination of care (as documented) at patient's floor/unit and/or counseling patient:
--- NOTE | 2020-02-24 13:17 | Post Anesthesia Assessment ---
Date of Service February 24, 2020 Post Sedation Assessment Vital Signs Temp Pulse Pulse Resp BP BP BP 02/24/20 12:00 36.8 C 65 18 93/61 L 02/24/20 08:56 65 02/24/20 08:23 36.7 C 67 16 91/58 L 02/24/20 03:44 36.7 C 63 17 91/60 L 02/24/20 00:43 67 02/23/20 23:46 37.1 C 81 17 98/60 L 02/23/20 19:08 37.1 C 80 18 92/60 L 02/23/20 17:53 71 02/23/20 17:09 37.2 C 70 16 103/69 02/23/20 16:31 77 17 02/23/20 16:30 67 19 103/65 02/23/20 16:14 104/75 02/23/20 16:00 81 16 02/23/20 15:31 75 16 02/23/20 15:30 78 15 108/71 02/23/20 15:22 85 19 02/23/20 15:21 86 18 114/83 02/23/20 15:00 82 12 109/53 L 02/23/20 14:41 92 H 16 02/23/20 14:30 75 17 02/23/20 14:01 79 18 02/23/20 14:00 80 81 15 103/68 106/67 02/23/20 13:54 81 15 106/67 02/23/20 13:30 78 18 Pulse Ox 02/24/20 12:00 96 02/24/20 08:56 02/24/20 08:23 98 02/24/20 03:44 97 02/24/20 00:43 02/23/20 23:46 97 02/23/20 19:08 97 02/23/20 17:53 02/23/20 17:09 99 02/23/20 16:31 02/23/20 16:30 02/23/20 16:14 02/23/20 16:00 02/23/20 15:31 02/23/20 15:30 02/23/20 15:22 02/23/20 15:21 02/23/20 15:00 02/23/20 14:41 02/23/20 14:30 02/23/20 14:01 02/23/20 14:00 02/23/20 13:54 02/23/20 13:30 Recovery Score Activity: Moves 4 extremities Respiration: Deep Breath/Cough Circulation: +/-20% PreAnes Value Consciousness: Fully Awake Oxygen Saturation: > 92% On Room Air Discharge Sedation Level of Care: Fast Track Phase II Post Sedation Plan On clinical assessment, the patient appears to have tolerated the sedation without complications. Patient is recovering as anticipated. Patient will continue to be monitored by nursing and may be discharged when sedation discharge criteria are met per below protocol. Upon Completions of procedure up to 15 minutes continue every 5 minute vital signs and the P.A.R. score; then discharge to a Phase I or Fast Track to Phase II per the following guidelines: * Discharge Patient to appropriate Phase II area if PAR is 8 or greater or return to pre- procedure baseline. The post - procedure orders will be as directed. * If PAR score is less than 8 or not return to pre-procedure baseline then patient will follow Phase I monitoring till PAR is reached for Phase II. The Phase I may be done in procedure room or may call to secure a Phase I area. * If naloxone or flumazenil are used for reversal, hold in Phase I for continued monitoring from when last reversal dose was given for a minimum of 60 minutes or longer pending the nurse and/or physician discretion of patient condition before discharge to Phase II. Please call the Sedation Physician to re-evaluate and complete post-note for discharge to Phase II area. Do NOT discharge from procedure sedation or Phase 1 until post- sedation evaluation note is complete by procedure /sedation MD Sedation Discharge Instructions to be given to the patient at discharge to home.
[2020-02-24] MEDS ORDERED: OMEGA-3 (PURIFIED FISH OIL) 1 GM CAP PO SCH (16:30)
[2020-02-24] MEDS ORDERED: CEROVITE ADV FORMULA TAB PO SCH (16:30)
[2020-02-24 17:17] LABS: Partial Thromboplastin Ratio 1.1
[2020-02-24] MEDS: SIMVASTATIN 20 MG TAB PO SCH (17:46)
--- NOTE | 2020-02-24 18:34 | Discharge Summary ---
Date of Service February 24, 2020 Admission HPI Per Admitting Provider Mrs. Kumar is a generally active and healthy 65-year-old female with a history of Hypercholesterolemia who presents today complaining of decreased exertional tolerance, and exertional dyspnea ever since having an episode of chest discomfort on Wednesday02/19/2020. Patient with through an extremely stressful situation with her younger sister on 02/19/2020. Patient's mother had a stroke and is now in a jail which has been quite expensive -- and her younger sister has been living in the mother's home. Patient plans on selling her mother's house to help pay for jail cost, but her younger sister is opposed to this. Nonetheless, arrangements were made for the patient and her youngest to go there and start emptying out some of the furnishings. needless to say, her younger sister who is a hoarder -- barricaded herself inside the house and called the police. When the police were interviewing the patient, she developed a vague discomfort in her anterior chest which lasted for about 30 minutes in total. She did not have any associated nausea, vomiting, diaphoresis, or dyspnea. The discomfort did not radiate anywhere else either. However, since that time, when the patient goes on her daily 4 mile walk -- her exertional tolerance has dropped off significantly, and she experiences exertional dyspnea which limits her. Patient states that she has walked every day for a long time, walking 4 miles a day and this includes hills. She has never experienced anything like this before. She is not experiencing any chest discomfort at this point. Patient denies any prior cardiac history or prior cardiac events. She exercises routinely. She is compliant with her medicines and has not had any adverse side effects. Evaluation in the ER shows an elevated troponin I level of 0.270 ng/mL and her EKG shows a NSR with an age-indeterminate septal infarct pattern. No prior tracings for comparison. Principal Diagnosis Chest Pain Discharge Exam Constitutional WD/WN, vitals as above Respiratory normal respiratory effort, lungs clear to auscultation Cardiovascular RRR, no murmur, no edema Gastrointestinal (Abdomen) normal bowel sounds, soft, nontender, no hepatosplenomegaly Discharge Data Allergies Allergy/AdvReac Type Severity Reaction Status Date / Time Sulfa Drugs Allergy Unknown Unknown Uncoded 02/23/20 13:53 Consultations 02/23/20 17:23 Consult Cardiology Routine 02/24/20 13:15 Consult Cardiac Rehabilitation Routine Procedures Performed Operation Date: 02/24/20 12:30 Actual Procedures p Cath, Left with Cors and Vent - Héctor Chino MD Ordered Studies 02/24/20 11:28 CL Cath Imgs for PACS use only Routine Hospital Course (1) Takotsubo cardiomyopathy: During the patients stay she had no repeat symptoms. No abnormalities were seen on Cardiac Monitoring. Elevation of Cardiac enzymes were found.. Evaluation by Cardiology, with Cardiac Catheterization ultimately performed. results as follows: Impression: 1. Nonobstructive CAD. 2. Normal left-sided filling pressure. 3. No aortic stenosis. 4. History and findings consistent with Takotsubo cardiomyopathy. Plan: 1. Risk factor modification (continue aspirin 81 mg daily, replace simvastatin with atorvastatin 40 mg daily). 2. Continue metoprolol succinate 25 mg daily. Initiate low-dose lisinopril if blood pressure allows as inpatient or as outpatient. 3. Follow-up with cardiology in 1 to 2 weeks. Outpatient echocardiogram will be arranged. The patient's blood pressure did not support metoprolol dosing and therefore the medication was held during hospital stay. Plan to start metoprolol with PCP and/or cardiology on an outpatient basis. Blood Pressure remained in low 90's systolic prior to discharge. Changed to Lipitor for high dose statin treatment. The pt was feeling well post procedure. tolerating normal diet. Scheduled follow up with PCP and cardiology. (2) Chest pain: (3) Elevated troponin I level: (4) Dyspnea on exertion: (5) Hypercholesterolemia: Total Time Total Time Spent Total Time Spent (In Minutes): 45 Total Time Includes: Examination of the Patient, Discharge Planning, Medication Reconciliation and Communication With Other Providers Discharge Plan Discharge Items Patient Disposition: Home - Self-Care Reason For Visit: CHEST PAIN, ELEVATED TROP Discharge Diagnosis: Chest Pain Condition on Discharge: Good Activity: Per Instructions section Activity Comment: Activity as tolerated which do not cause symptoms of chest pain or dyspnea. Lifting: Gradually increase as tolerated Bathing: No limitations Sexual Activity: When tolerated Exercise/Sports: Wait until after follow-up appointment Driving/Machine Use: Resume 1 day after discharge Non-emergency contact: Primary Care Provider and Traffic Rate Computer Call non-emergency contact if: you have any medication questions, your symptoms worsen, you have a fever, your wound has increased redness, your wound has increased drainage and your wound pain has increased Follow-up/Referrals: Héctor Chino MD [Physician] - Keo Shaw Jr, [Primary Care Provider] - Diet: Heart Healthy Addtl Attending Provider Instructions: ACTIVITY RECOMMENDATIONS: Excess manipulation of the wrist should be avoided for the next 24-48 hours. * No lifting over 2 pounds (approximately a 1/2 gallon of milk) with the utilized arm for 24 hours. * No strenuous activity such as bowling or tennis for 3 days. * Keep the site of the procedure covered with a bandage for 24 hours. *You may shower the day after the procedure. Do not take a tub bath or submerge the puncture site in water for the next 3 days. *Do not operate any motorized equipment for 3 days. SPECIAL CARE INSTRUCTIONS: The site may be slightly bruised and sore following your procedure. Should any of the following occur, contact the Dr. who performed your procedure. 1. Redness/inflammation, swelling, chills, or fever, or colored drainage at procedure site within 3-7 days after your procedure. 2. Coldness, discoloration, ongoing numbness, severe pain, or swelling. Expect mild tingling of hand and tenderness at the puncture site for up to three days. If this persists beyond three days, or other symptoms develop, notify the Dr. who performed your procedure. BLEEDING: If the procedure site on your wrist begins to bleed, do not panic 1. Place 1 or 2 fingers firmly just slightly above the insertion site to stop the bleeding. You may be able to feel your pulse as you hold pressure. 2. Lift your finger after 5 minutes to see if the bleeding has stopped. 3. Once the bleeding has stopped, gently wipe the wrist area clean with a bandage. * If the bleeding from your wrist does not stop after 10 minutes, or if there is a large amount of bleeding or spurting, call 911 (do not drive yourself to the hospital). SKIN IRRITATION: * You may experience some redness and/or swelling in the area where radiation was administered. If any skin irritation occurs, please contact your family physician. FOLLOW UP VISIT: 1. Follow up in Cardiology office in 1-[address] Chino's office will call you with time/date of appointment. If you have questions or concerns, call his office at [phone]. Addtl Aircraft Mechanic Provider Instructions: PLease, discuss Blood Pressure medications with your PCP and Cardiology. Since your blood pressure was low normal during your visit. On your discharge we will hold off on starting the medication. Pending Studies at Discharge: No Stand-Alone Forms: My [facility] [employer], Smoking Cessation Medications and DC Order Prescriptions: New aspirin 81 mg Tablet,Delayed Release (Dr/Ec) 81 mg PO DAILY Qty: 1 RF: 0 nitroglycerin [Nitrostat] 0.4 mg Tablet, Sublingual 0.4 mg sublingual PRN PRN (Reason: chest pain) Qty: 30 RF: 0 atorvastatin [Lipitor] 40 mg tablet 40 mg PO DAILY Qty: 30 RF: 1 Continued omega-3 fatty acids [Fish Oil Concentrate] 1,000 mg capsule 1,000 mg PO QDD RF: 0 Centrum Silver Women 8 mg iron-400 mcg-300 mcg Tablet 1 tab PO QDD RF: 0 Discontinued simvastatin 20 mg tablet 20 mg PO QDD RF: 0 Discharge Orders: Discharge Order (Routine); Ordered 02/24/20 Ordered By: Mateo Evans/Other Patient Handouts: Cholesterol Medicines, Takotsubo Cardiomyopathy Admission Data Admit Date/Time: 02/23/20 14:59 Attending Provider: Mateo Horvath Admit Provider: Brisa Ferguson Primary Care Provider: Keo Shaw Jr Other Providers: Brennan Alcantar ; Vincent Chawla ; Jovani Dial ; Ion Santoro ; Joe Camarena ; Adelso Davis Jr ; Héctor Chino ; Melody Escalona ; Dayami Stevenson ; Carlos Fofana ; Carlos Caballero ; Grzegorz Echols ; Keo Cerrato Jennifer M. ; Elli Kim ; Alistair Luna ; Satinder Quevedo ; Ronal Nicolas Other Interventions: Discharge Summary Assessment (RN) Last Done: 02/24/20 18:13 Coding Level of Care Code D/C Day Management >30 mins Diagnoses Takotsubo cardiomyopathy I51.81 Chest pain R07.9 Chest pain type: unspecified Elevated troponin I level R77.8 Dyspnea on exertion R06.00 Hypercholesterolemia E78.00
[2020-02-25] MEDS ORDERED: METOPROLOL SUCC 25MG EXT REL TAB PO SCH (09:00)
== END 2020-02-24 18:50 | disposition home or self-care (01) ==
LOC: ED 12:26 → 2S 12:26 → SUATTDRO 14:59 → 2S 16:58